=== PATIENT | male | born 1965 | race Caucasian/White ===

== ENCOUNTER 2020-05-09 17:25 | Emergency (ER) | payer OTHER, SELFPAY ==
--- NOTE | 2020-05-09 17:38 | ED.SKABFB ---
HPI - Skin/Abscess/Foreign Bdy General Chief complaint: Skin/Abscess/Foreign Body Stated complaint: knee blister Time Seen by Provider: 05/09/20 17:44 Source: patient and RN notes reviewed Mode of arrival: ambulatory Limitations: no limitations History of Present Illness HPI narrative: 55-year-old male who presents to express care with complaints of redness, warmth and swelling to tissues of anterior left knee for the past 2 day with some purulent drainage. Patient states that he was crawling under the house about a month ago and wonders if that is what has caused this. Patient states that he has been squeezing on lesion on left knee and it has been draining purulent drainage. Patient has scabbed area to his right knee with no redness, drainage or irritation. Patient denies any fevers, chills, or sweats. MD complaint: abscess/boil Onset (ago): day(s) (2) Tetanus up to date: yes Location: LLE (anterior knee) Severity: mild Severity scale (1-10): 3 Quality: aching and pruritic Pain Consistency: constant Relieving factors: cold therapy Exacerbating factors: palpation and movement Context: other (was working in crawl space at home one month ago) Associated symptoms: itching and other (discomfort) Treatments prior to arrival: attempted to drain pus at home and OTC topical medication Related Data Allergies Allergy/AdvReac Type Severity Reaction Status Date / Time No Known Allergies Allergy Verified 05/09/20 17:43 Review of Systems Review of Systems: Narrative: CONSTITUTIONAL: Denies fever, chills, or sweats. EYES: Denies visual changes, redness, or discharge. ENT: Denies rhinorrhea, congestion, sore throat, or otalgia. CARDIOVASCULAR: Denies chest pain, palpitations, or edema. RESPIRATORY: Denies cough or dyspnea. GASTROINTESTINAL: Denies abdominal pain, nausea, vomiting, or diarrhea. GENITOURINARY: Denies dysuria or hematuria. SKIN: positive for red, warm, tender skin anterior left knee with small center pustule, patient also states some pruritus to skin area MUSCULOSKELETAL: Denies back pain, joint pain, or myalgia. NEUROLOGIC: Denies headache, numbness, or weakness. PSYCHIATRIC: Denies anxiety or depression. All systems reviewed & are unremarkable except as noted in HPI and below PMFSH Past Medical History Medical History (Updated 05/09/20 @ 18:22 by Flora Lama NP) Essential hypertension Surgical History Surgical History (Updated 05/09/20 @ 18:22 by Flora Lama NP) History of tonsillectomy Family History Family History (Updated 07/27/19 @ 07:21 by Jeri Ricardo CMA) Sibling Murmur Father CAD (coronary artery disease) Neuropathy Diabetes mellitus Mother COPD (chronic obstructive pulmonary disease) Diabetes mellitus Sibling Heart disease Diabetes mellitus Social History Social History (Updated 05/09/20 @ 18:23 by Flora Lama NP) Smokeless tobacco user: chewing tobacco Alcohol intake: current Substance use: never Living arrangements: with family Occupation/Education: occupation 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 HEAD: Normocephalic, atraumatic. EYES: PERRLA and EOMI. ENT: Nares clear, no rhinorrhea or epistaxis. Mucous membranes moist. NECK: Supple.no lymphadenopathy CHEST: Clear to auscultation. No respiratory distress.SAO2 98% on room air HEART: Regular rate and rhythm. No murmur heard. Normal peripheral pulses. ABDOMEN: Soft, nontender, nondistended, normal active bowel sounds. EXTREMITIES: Normal range of motion. No edema.Pain to anterior aspect of left knee, full ROM noted with no tingling or numbness to left leg or foot, mild warmth to tissue of anterior aspect of left knee SKIN: Warm, dry, 4cmX 3cm area of redness with warmth to anterior aspect of left knee with center white pustular area
[2020-05-09 17:40] VITALS: BP 153/84; PULSE 102; RESP 20; TEMP 37.4; O2SAT 98
== END 2020-05-09 18:09 | disposition home or self-care (01) ==
PROVIDERS: Emergency Provider Registered Nurse; PCP Internal Medicine
DX: L02.416 Cutaneous abscess of left lower limb (principal); M25.562 Pain in left knee; F17.220 Nicotine dependence, chewing tobacco, uncomplicated; I10 Essential (primary) hypertension
CPT/HCPCS: 99213; G0463

== ENCOUNTER 2021-03-21 08:14 | Outpatient (CLI) | payer OTHER, SELFPAY ==
[2021-03-21 09:11] LABS: Basophils Absolute Auto 0.1 K/mm3 (0.0-0.1); Basophils Percent Auto 1.1 % (0.2-1.2); Eosinophils Absolute Auto 0.4 K/mm3 (0-0.3); Eosinophils Percent Auto 6.6 % (0-4.4); Hematocrit 44.9 % (42.0-52.0); Hemoglobin 14.8 g/dL (14.0-18.0); Immature Granulocyte Absolute 0.03 K/mm3 (0.00-0.031); Immature Granulocyte Percent A 0.6 % (0-0.5); Lymphocytes Absolute Auto 2.14 K/mm3 (0.9-3.2); Lymphocytes Percent Auto 39.3 % (18.3-44.2); Mean Corpuscular Volume 93.9 fl (80-100); Mean Platelet Volume 9.7 fl (7.4-10.4); Monocytes Percent Auto 18.9 % (2.6-8.5); Neutrophils Absolute Auto 1.8 K/mm3 (1.3-6.7); Neutrophils Percent Auto 33.5 % (45.5-73.1); Platelet Count Result 237 k/mm3 (150-375); Red Blood Count 4.78 M/mm3 (4.6-6.20); Red Cell Distribution Width 12.7 % (11.5-14.5); White Blood Count 5.4 K/mm3 (4.5-10.0)
[2021-03-21 09:29] LABS: Alanine Aminotransferase 34 U/L (4-50); Albumin Level 4.3 g/dL (3.5-5.1); Alkaline Phosphatase 56 U/L (38-126); Anion Gap 9 mmol/L (8-16); Aspartate Amino Transferase 34 U/L (17-59); Bilirubin,Total 0.7 mg/dL (0.2-1.3); Blood Urea Nitrogen 20 mg/dL (9-20); Calcium 9.7 mg/dL (8.4-10.2); Carbon Dioxide 24 mmol/L (22-30); Chloride 103 mmol/L (98-107); Cholesterol 198 mg/dL (0-200); Estimated Glomerular Filt Rate > 60; Glucose 98 mg/dL (65-110); HDL Direct 39 mg/dL; Potassium 4.6 mmol/L (3.4-5.0); Sodium 136 mmol/L (137-145); Triglycerides 146 mg/dL (<150)
[2021-03-21 09:40] LABS: LDL Cholesterol Direct 111 mg/dL
[2021-03-21 09:57] LABS: Prostate Specific Antigen 0.5 ng/mL (< OR = 4.0)
== END 2021-03-21 08:15 | disposition home or self-care (01) ==
PROVIDERS: PCP Internal Medicine; Visit Provider Nurse Practitioner
DX: I10 Essential (primary) hypertension (principal); Z12.5 Encounter for screening for malignant neoplasm of prostate
CPT/HCPCS: 36415; 80053; 80061; 84153; 85025; G0103

== ENCOUNTER 2021-09-14 12:37 | Emergency (ER) | payer OTHER, SELFPAY ==
[2021-09-14 12:47] VITALS: BP 150/80; PULSE 86; RESP 20; TEMP 36.9; O2SAT 98
--- NOTE | 2021-09-14 13:03 | ED.GENADULT ---
HPI - General Adult General Chief complaint: Ear Stated complaint: Lt Ear Irritation Time Seen by Provider: 09/14/21 12:53 Source: patient and RN notes reviewed Mode of arrival: ambulatory Limitations: no limitations History of Present Illness HPI narrative: Patient presents today complaining of intermittent left ear pain and pressure that radiates to his left upper jaw x1 week. He is currently pain-free. He has been applying peroxide to the ear canal without relief. He has also been pinching and blowing to equalize his ear, which does help at times. Denies decreased hearing or drainage from the ear. MD complaint: Left ear pain Related Data Allergies Allergy/AdvReac Type Severity Reaction Status Date / Time No Known Allergies Allergy Verified 09/14/21 12:50 Review of Systems Review of Systems: CONSTITUTIONAL: Denies body aches, fever, chills, or sweats. EYES: Denies visual changes, redness, or discharge. ENT: Denies rhinorrhea, congestion, sore throat. + Left ear pain CARDIOVASCULAR: Denies chest pain, palpitations, or edema. RESPIRATORY: Denies cough or dyspnea. GASTROINTESTINAL: Denies abdominal pain, nausea, vomiting, or diarrhea. GENITOURINARY: Denies dysuria or hematuria. SKIN: Denies rash, itching, or wounds. MUSCULOSKELETAL: Denies back pain, joint pain, or myalgia. NEUROLOGIC: Denies headache, numbness, tingling, or weakness. PSYCH: Denies depression or anxiety. 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 Please see nursing chart for further information. There is no relevant family history pertinent to the presenting complaint Exam Narrative: GENERAL: Well-appearing, well-nourished, and in no acute distress. HEAD: Normocephalic, atraumatic. EYES: EOMI. No redness or drainage. Conjunctivae normal. ENT: Mucous membranes pink and moist. Nares clear. No rhinorrhea. Left ear with mild middle ear effusion without evidence of infection. Right ear normal. Left upper gumline faintly erythematous around where tooth 13 used to be, but without edema or obvious periapical abscess. NECK: Normal AROM. CHEST: No respiratory distress. EXTREMITIES: Normal range of motion. No edema. SKIN: Warm, dry, no rash. Capillary refill normal. Normal skin turgor. NEURO: No focal deficits. Alert and oriented x3. Gait steady. PSYCH: Normal affect. No signs of depression or anxiety. Course Course Emergency Course: Discussed with patient that he has mild middle ear effusion and ways to treat this with Coricidin and Flonase. Patient then states he believes his source of pain is in his jaw and possible tooth area. This was not what he originally described. Patient states that now he knows he does not have an ear infection, that may be he has a dental infection where he previously had a tooth removed many years ago. It is difficult to examine, but tooth #13 was removed, but there is a slight erythema around the socket. No periapical abscess noted. Some dental decay not
== END 2021-09-14 13:15 | disposition home or self-care (01) ==
PROVIDERS: Emergency Provider Nurse Practitioner; PCP Internal Medicine
DX: K08.89 Other specified disorders of teeth and supporting structures (principal); H65.02 Acute serous otitis media, left ear; I10 Essential (primary) hypertension
CPT/HCPCS: 99213; G0463

== ENCOUNTER 2021-12-15 14:12 | Observation (INO) | payer OTHER, SELFPAY ==
[2021-12-15] VITALS (39 sets, daily range): BP systolic 109–158; BP diastolic 67–116; PULSE 59–82; RESP 7–26; TEMP 36.3–36.8; O2SAT 96–100; BMI 28.8
--- NOTE | ~2021-12-15 | US_ITS ---
EXAMINATION: US carotid duplex BI DATE: 12/16/2021 11:00 INDICATION: Stroke TECHNIQUE: Grayscale, color Doppler, and pulsed Doppler images of the cervical carotid arteries were obtained. The degree of vessel stenosis is placed in one of the following categories: normal, <50%, 5 0-69%, >=70% but less than near-occlusion, near-occlusion, or total occlusion. Note that percent sten osis relative to normal distal artery lumen diameter is indirectly measured from velocity measurement s as described by Bert, et al. Radiology 2003; 229:340-346. COMPARISON: Carotid CT angiogram dated 12/15/2021 FINDINGS: RIGHT: The right common carotid artery (CCA) peak systolic velocity (PSV) is 79 cm/s. The right internal car otid artery (ICA) PSV is 56 cm/s. The right ICA end-diastolic velocity (EDV) is 12 cm/s. The right IC A/CCA PSV ratio is 0.7. Grayscale and color Doppler images yield an estimate of <50% diameter reducti on from minimal plaque in the ICA. The external carotid artery (ECA) PSV is 99 cm/s. There is antegra de flow in the right vertebral artery. LEFT: The left CCA PSV is 77 cm/s. The left ICA PSV is 58 cm/s. The left ICA EDV is 21 cm/s. The left ICA/C CA PSV ratio is 0.7. Grayscale and color Doppler images yield an estimate of <50% diameter reduction from minimal plaque in the ICA. The ECA PSV is 61 cm/s. There is antegrade flow in the left vertebral artery. IMPRESSION: 1. <50% stenosis from minimal plaque in the right internal carotid artery. 2. <50% stenosis from minimal plaque in the left internal carotid artery. Reviewed, dictated and finalized at location A.
--- NOTE | ~2021-12-15 | CT_ITS ---
EXAMINATION: CT brain wo con DATE: 12/15/2021 14:22 INDICATION: Stroke with presenting with aphasia and confusion TECHNIQUE: Computed tomography (CT) of the head was performed without intravenous contrast. Sagittal and coronal reconstructions were performed. The mA was adjusted according to patient size. Iterative reconstruction technique was employed. The dose-length product was 1210.67 mGy-cm. COMPARISON: None FINDINGS: Evaluation mildly limited by motion artifact on both the initial imaging and repeated imaging. No acu te intracranial hemorrhage, acute infarction or abnormal extra axial fluid collection. Ventricles are normal and symmetric. No mass/mass effect. The orbits, paranasal sinuses and mastoid air cells are n ormal. IMPRESSION: 1. Normal head CT aside from motion artifact on both initial and repeat imaging which mildly limits e valuation. Reviewed, dictated and finalized at location A. IMPRESSION: 1. Normal head CT aside from motion artifact on both initial and repeat imaging which mildly limits evaluation.
--- NOTE | ~2021-12-15 | MR_ITS ---
EXAMINATION: MR brain/brain stem wo/w con DATE: 12/16/2021 10:30 INDICATION: Cerebral vascular accident. Dysphasia. TECHNIQUE: Magnetic resonance imaging (MRI) of the brain and brainstem was performed without and with 20 mL MultiHance intravenous contrast. COMPARISON: Head CT 12/15/2021 FINDINGS: There is no intracranial hemorrhage, acute infarction, or abnormal intracranial mass lesion . The ventricles are normal in size. The paranasal sinuses are clear. The mastoid air cells are ingrid l. The orbits are normal. IMPRESSION: 1. Normal brain. Reviewed, dictated and finalized at location B. IMPRESSION: 1. Normal brain.
--- NOTE | ~2021-12-15 | CT_ITS ---
EXAMINATION: CTA brain carotid DATE: 12/15/2021 15:00 INDICATION: Dysphasia. TECHNIQUE: Computed tomographic angiography (CTA) of the head was performed with 100 mL Omnipaque-350 intravenous contrast. CTA of the neck was performed with intravenous contrast. Automated exposure co ntrol and iterative reconstruction technique were employed. The dose-length product was 1146.55 mGy-c m. Maximum intensity projection and volume rendered 3D-reconstructions were created by the [employer]OO[facility]IM[facility] st on a separate workstation. COMPARISON: Head CT 12/15/2021 FINDINGS: HEAD CTA: There is no intracranial hemorrhage, acute infarction, or abnormal intracranial mass lesion . The ventricles are normal in size. The orbits are normal. The mastoid air cells are normal. There i s mild mucosal thickening in the paranasal sinuses. Left vertebral artery is dominant. There is no si gnificant stenosis of basilar artery or the posterior cerebral arteries. The posterior communicating arteries are normal. There is no significant stenosis of the intracranial internal carotid arteries o r anterior or middle cerebral arteries. Anterior communicating artery is normal. There is no aneurysm . NECK CTA: There are no pathologically enlarged lymph nodes. There is extensive dental disease. There is no significant stenosis of the vertebral arteries. There is mild plaque in the proximal internal c arotid arteries. There is 0% stenosis of the proximal right internal carotid artery relative to ingrid l distal artery lumen diameter (NASCET criteria). There is 0% stenosis of the proximal left internal carotid artery relative to normal distal artery lumen diameter. There is moderate cervical spondylosi s. IMPRESSION: 1. Normal brain. No aneurysm or significant intracranial arterial stenosis. 2. 0% stenosis of the proximal internal carotid arteries relative to normal distal artery lumen diame ters (NASCET criteria). 3. Extensive dental disease. Reviewed, dictated and finalized at location B. IMPRESSION: 1. Normal brain. No aneurysm or significant intracranial arterial stenosis. 2. 0% stenosis of the proximal internal carotid arteries relative to normal dis anh artery lumen diameters (NASCET criteria). 3. Extensive dental disease.
--- NOTE | 2021-12-15 14:29 | ED.NEUROSD ---
HPI - Neuro Symptoms/Deficit General Chief Complaint: Suspected CVA Stated Complaint: CVA s/sx Source: patient and family Mode of arrival: ambulatory Limitations: no limitations History of Present Illness HPI Narrative: 56-year-old male presented to the emergency department for evaluation of speech difficulty that has been ongoing for the past 2 days. Family states the patient was last seen normal on Wednesday night. They report the patient did sleep the majority of the day on Wednesday and when family went to wake him up he would awake but would not speak. They state today when he woke up he was confused and was having speech difficulties. Family states that this morning he went into the living room and had a bowel movement on the floor. They report the patient has been more agitated here. Patient does have history of high blood pressure. Patient is unsure of his cholesterol. Patient is not diabetic. Related Data Allergies Allergy/AdvReac Type Severity Reaction Status Date / Time No Known Allergies Allergy Verified 12/15/21 21:51 Review of Systems Review of Systems: Patient denies any complaints but review of systems is difficult due to his current mental status ROS unobtainable: Yes unobtainable due to mental status [facility] Past Medical History Medical History Essential hypertension Surgical History Surgical History History of tonsillectomy Family History Family History Sibling Murmur Father CAD (coronary artery disease) Neuropathy Diabetes mellitus Mother COPD (chronic obstructive pulmonary disease) Diabetes mellitus Sibling Heart disease Diabetes mellitus Social History Social History (Updated 12/15/21 @ 20:33 by Shaila Barrera NP) Social History: 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 The patient works for the [employer]. He has had asbestos exposure. The patient has 1 child. The patient uses smokeless tobacco. Patient occasionally drinks a glass of wine. He denies any substance abuse. Code status full code Smokeless tobacco user: chewing tobacco Second hand tobacco smoke exposure: No Alcohol intake: never Alcohol use details: socially Substance use: never Additional occupation/education comments: [employer] Gender identity (if verbalized by the patient): Male Spiritual care concerns: No Exam Narrative: APPEARANCE: Well appearing, no pain, no distress, well-nourished. HEAD: normocephalic, atraumatic. EYES: PERRLA/EOMI, conjunctivae clear. NOSE: Normal no drainage EARS:TMS clear with good light reflex. THROAT: Pharynx clear, no exudate. NECK: Supple. No adenopathy, no masses. RESPIRATORY: Airway patent, respirations nonlabored. Clear to auscultation bilaterally, no rales, rhonchi, wheezing. CARDIOVASCULAR: Regular rate and rhythm without murmurs rubs or gallops. ABDOMINAL: Soft, nontender, nondistended, normal bowel sounds MUSCULOSKELETAL: Moves all extremities. Strength/ROM intact, No edema, No calf tenderness. NEURO: Alert. Cranial nerves II through XII intact. Patient is having difficulty cooperating with the exam. Patient is having word finding difficulty. Was unable to name the president, was unable to identify a pen or a watch. No focal weakness or discoordination but exam is limited due to patient cooperation. SKIN: Warm, dry. Normal Color Course Course Emergency Course: I discussed the case with neurology. Due to the patient being out of the window for any invasive treatment patient will be admitted for MRI and further evaluation. Patient and family were updated on the plan. Patient was treated with aspirin and Plavix. Case was discussed with the hospitalist and patient will be admitted to [facility] telemetry. Vital Signs Vital signs: Vital Signs Temperatur
[2021-12-15 14:39] LABS: Basophils Absolute Auto 0.1 K/mm3 (0.0-0.1); Basophils Percent Auto 0.7 % (0.2-1.2); Eosinophils Absolute Auto 0.2 K/mm3 (0-0.3); Eosinophils Percent Auto 1.7 % (0-4.4); Hematocrit 46.8 % (42.0-52.0); Hemoglobin 15.5 g/dL (14.0-18.0); Immature Granulocyte Absolute 0.03 K/mm3 (0.00-0.031); Immature Granulocyte Percent A 0.3 % (0-0.5); Lymphocytes Absolute Auto 2.29 K/mm3 (0.9-3.2); Lymphocytes Percent Auto 26.4 % (18.3-44.2); Mean Corpuscular HGB Conc 33.1 g/dl (32-36); Mean Corpuscular Hemoglobin 31.6 pg (26-34); Mean Corpuscular Volume 95.5 fl (80-100); Mean Platelet Volume 9.8 fl (7.4-10.4); Monocytes Absolute Auto 1.6 K/mm3 (0.1-0.6); Monocytes Percent Auto 18.4 % (2.6-8.5); Neutrophils Absolute Auto 4.6 K/mm3 (1.3-6.7); Neutrophils Percent Auto 52.5 % (45.5-73.1); Platelet Count Result 244 k/mm3 (150-375); Red Cell Distribution Width 12.8 % (11.5-14.5); White Blood Count 8.7 K/mm3 (4.5-10.0)
[2021-12-15 14:49] LABS: Prothrombin Time 13.1 Seconds (11.1-14.7)
[2021-12-15 14:50] LABS: Alanine Aminotransferase 32 U/L (6-50); Albumin Level 4.8 g/dL (3.5-5.1); Alkaline Phosphatase 60 U/L (38-126); Anion Gap 7 mmol/L (8-16); Aspartate Amino Transferase 31 U/L (17-59); Bilirubin,Total 0.7 mg/dL (0.2-1.3); Blood Urea Nitrogen 20 mg/dL (9-20); Calcium 9.3 mg/dL (8.4-10.2); Carbon Dioxide 27 mmol/L (22-30); Chloride 102 mmol/L (98-107); Estimated CRCL calculation 65 ml/min; Estimated Glomerular Filt Rate > 60; Glucose 111 mg/dL (65-110); Partial Thromboplastin Time 30.3 SECONDS (22.3-36.8); Potassium 4.2 mmol/L (3.4-5.0); Sodium 136 mmol/L (137-145)
[2021-12-15 16:19] LABS: Appearance Urine Clear (Clear); Bilirubin Urine Negative (Negative); Blood Urine Negative (Negative); Color Urine Yellow (Yellow); Glucose Urine UA Negative (Negative); Ketones Urine Negative (Negative); Leukocyte Esterase Ur Negative LEU/UL (Negative); Nitrate Urine Negative (Negative); Protein Urine Negative (Negative); Specific Grav Ur 1.015 (1.001-1.035); Urobilinogen Urine 0.2 mg/dL (<2.0); pH Urine 5.5 (5.0-9.0)
[2021-12-15 16:38] LABS: Add Urine Microscopic? NO
--- NOTE | 2021-12-15 17:16 | PM.IMHP ---
H&P: HPI History of Present Illness Date/Time: 12/15/21 17:16 this is a 56-year-old male patient who presented to the emergency room with difficulty speaking. This is been going on for 2 days. Family stated that his last normal was Wednesday night. The patient slept the majority of the day on Wednesday and family went to wake him he was not able to speak. Patient was confused and having speech difficulty again today. The family stated that the patient went into the liver ER and had a bowel movement in the middle of the living room. Head and neck CTA was read as normal brain. No aneurysm or significant intracranial arterial stenosis. 0% stenosis of the proximal internal carotid arteries relative to normal distal artery lumen diameters. Extensive dental disease. Head CT normal head CT is from motion artifact on both internal on repeated imaging which mildly limits evaluation. The patient continues to have expressive aphasia. The patient is able to tell me his name and who the president is but he could not give me the date or the time. The patient was given IV fluids, Plavix and aspirin. The patient is being admitted to observation status on the date of service of 12/15/2021. Chief Complaint: Confusion Review of Systems Review of Systems: All systems reviewed & are unremarkable except as noted in HPI and below Constitutional: Constitutional: Reports as per HPI and Reports no additional constitutional complaints Eyes: Eyes: Reports as per HPI and Reports no additional eye complaints ENT: Reports system reviewed and no additional complaints, except as documented and Reports Normal hearing present Cardiovascular: Cardiovascular: Reports no additional cardiovascular complaints Respiratory: Respiratory: Reports no additional respiratory complaints and Reports no additional respiratory complaints Gastrointestinal: Gastrointestinal: Reports as per HPI and Reports no additional gastrointestinal complaints Musculoskeletal: Musculoskeletal: Reports no additional musculoskeletal complaints Integumentary/Breasts: Skin/Breast: Reports system reviewed and no additional complaints, except as docu and Reports as per HPI Neurologic: Reports system reviewed and no additional complaints, except as documented, Reports as per HPI and Reports Normal hearing present Psychiatric: Psychiatric: Reports no additional psychiatric complaints and Reports as per HPI Endocrine: Endocrine: Reports no additional endocrine complaints Hematologic/Lymphatic: Hematologic/Lymphatic: Reports no additional hematologic/lymphatic complaints Allergic/Immunologic: Allergic/Immunologic: Reports no additional allergic/immunologic complaints [facility] Past Medical History Medical History Essential hypertension Surgical History Surgical History History of tonsillectomy Family History Family History Sibling Murmur Father CAD (coronary artery disease) Neuropathy Diabetes mellitus Mother COPD (chronic obstructive pulmonary disease) Diabetes mellitus Sibling Heart disease Diabetes mellitus Social History Social History (Updated 12/15/21 @ 20:33 by Shaila Barrera NP) Social History: 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 He has had asbestos exposure. The patient has 1 child. The patient uses smokeless tobacco. Patient occasionally drinks a glass of wine. He denies any substance abuse. Code status full code Smokeless tobacco user: chewing tobacco Alcohol intake: current Alcohol use details: socially Substance use: never Additional occupation/education comments: [employer] Gender identity (if verbalized by the patient): Male Meds Home Medications and Allergies Home Medications Medication Instr
[2021-12-15] MEDS: SODIUM CHLORIDE 0.9% IV 1,000 ML 125 ML IV CONT ×2 (18:19→23:57)
--- NOTE | 2021-12-15 18:24 | PC.NURSE ---
Report received, awaiting room to be ready. Called [facility] to verify medication, no answer.
[2021-12-15 21:18] LABS: Glucose Point of Care 108 mg/dl (65-105)
--- NOTE | 2021-12-15 21:57 | ADMGEN ---
This patient, Teodoro Tran, was admitted to [facility] Surg Room 304-01. Patient/family oriented to hospital policies and general routines including ID bracelet, bed and alarms, visiting hours, pain management, procedures, bathroom and other care routines, personal items, smoking policy, room service/diet, and visiting hours. Information on how to activate the Rapid Response Team has been discussed. Patient/Family are encouraged to report perceived risks to care and to ask questions if they do not understand what they are told or what they should do.
[2021-12-16] VITALS (11 sets, daily range): BP systolic 125–152; BP diastolic 72–85; PULSE 50–74; RESP 18–24; TEMP 36.3–37.2; O2SAT 95–98
--- NOTE | 2021-12-16 | ECHO_ITS ---
Patient Info Name: Teodoro Tran Age: 56 years : 1965 Gender: Male Ht: 66 in Wt: 178 lbs BSA: 1.96 m2 HR: 70 bpm BP: 137 / 83 mmHg Heart Rhythm: Sinus Rhythm Technical Quality: Fair Exam Date: 12/16/2021 1:06 PM Exam Location: [facility] Patient Status: Inpatient Admit Date: 12/15/2021 Staff Ordering Physician: Shaila Barrera NP Museum Host/Hostess: Cassie Parry RDCS Attending Provider: Elicia Peres DO Referring Physician: Holly GONZALEZ; Exam Type: CA echo dop bubble study w con Study Info Indications - cva Complete two-dimentional, color flow and Doppler transthoracic echocardiogram is performed with agitated saline and with contrast to opacify the left ventricle and to improve the delineation of the left ventricle endocardial borders. Contrast/Agitated Saline Contrast/Ag. Saline: Definity Amount: 2.00 ml Administered By: Cassie Parry RDCS Existing IV Access: Yes IV Access Condition: patent with no signs of infiltration Contrast/Ag. Saline: Agitated Saline Amount: 30.00 ml Administered By: Isela Moreno RDCS Existing IV Access: Yes IV Access Condition: patent with no signs of infiltration Summary 1. Left ventricular chamber dimension is normal. 2. Left ventricular systolic function is normal, estimated at 65-70%. 3. The left ventricular diastolic function is grade I diastolic dysfunction. 4. Right ventricular systolic function is reduced based on abnormal TAPSE 1.2 cm. 5. There is mild aortic valve sclerosis. 6. The mitral valve has mildly calcified annulus. 7. No pulmonary hypertension, estimated pulmonary arterial systolic pressure is 19 mmHg. 8. There is trace pulmonic regurgitation. Left Ventricle Tissue doppler is not performed. Left ventricular chamber dimension is normal. Left ventricular systolic function is normal, estimated at 65-70%. The left ventricular diastolic function is grade I diastolic dysfunction. Right Ventricle Right ventricular systolic function is reduced based on abnormal TAPSE 1.2 cm. Right ventricular chamber dimension is normal. Left Atria Left atrial chamber dimension is normal. Right Atria Right atrial chamber dimension is normal. Atrial Septum Agitated saline injection with and without valsalva maneuver opacified right side cardiac chambers without shunt to left side cardiac chambers. Intact interatrial septum visualized by 2D and agitated saline imaging. Aortic Valve The aortic valve is trileaflet. There is mild aortic valve sclerosis. There is no aortic valve stenosis. There is no aortic valve regurgitation. Pulmonic Valve There is trace pulmonic regurgitation. Mitral Valve The mitral valve has mildly calcified annulus. There is no mitral valve stenosis. There is no mitral valve regurgitation. Tricuspid Valve There is no tricuspid valve regurgitation. No pulmonary hypertension, estimated pulmonary arterial systolic pressure is 19 mmHg. Pericardium/Pleural There is no pericardial effusion. Inferior Vena Cava Normal inferior vena cava with >50% collapse upon inspiration consistent with normal right atrial pressure, 5 mmHg. Aorta The aortic root size at the sinus of Valsalva is normal. Left Ventricular Outflow Tract Name Value Normal
[2021-12-16 01:51] LABS: Glucose Point of Care 97 mg/dl (65-105)
[2021-12-16 05:43] LABS: Glucose Point of Care 96 mg/dl (65-105)
[2021-12-16] MEDS: ASPIRIN 81 MG CHEWABLE TABLET PO (08:28)
[2021-12-16] MEDS: CLOPIDOGREL BISULFATE 75 MG TABLET PO (08:28)
[2021-12-16 08:49] LABS: Glucose Point of Care 115 mg/dl (65-105)
--- NOTE | 2021-12-16 10:04 | PC.NURSE ---
to MRI per wheelchair
[2021-12-16] MEDS: NICOTINE (*PBKC) 21 MG PATCH 1 PATCH TRANSDERM (11:01)
--- NOTE | 2021-12-16 11:45 | PCPTNOTE ---
Attempted physical therapy, patient getting EKG. Will Follow
[2021-12-16] MEDS: SODIUM CHLORIDE 0.9% IV 1,000 ML 125 ML IV CONT (13:36)
--- NOTE | 2021-12-16 13:36 | PCPTNOTE ---
Attempted physical therapy evaluation, patient getting an echo. Will follow.
--- NOTE | 2021-12-16 13:39 | PM.IMPN ---
Progress Note: A&P Assessment and Plan (1) Acute CVA (cerebrovascular accident): Code(s): I63.9 - Cerebral infarction, unspecified Status: Acute Assessment and Plan: PT OT and speech evaluation of greatly be appreciated. ED provider did notify Neurology. The neurologist suggested Plavix and aspirin. Patient will also need a swallow study. An MRI and echo and carotid Dopplers will be ordered. Continue with [employer]. 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 (2) Dysphasia: Code(s): R47.02 - Dysphasia Status: Acute Assessment and Plan: Speech therapy. (3) Essential hypertension: Code(s): I10 - Essential (primary) hypertension Status: Chronic Assessment and Plan: P.r.n. hydralazine. Subjective Date/time seen: 12/16/21 13:39 HPI-this is a 56-year-old male patient who presented to the emergency room with difficulty speaking. This is been going on for 2 days. Family stated that his last normal was Wednesday night. The patient slept the majority of the day on Wednesday and family went to wake him he was not able to speak. Patient was confused and having speech difficulty again today. The family stated that the patient went into the liver ER and had a bowel movement in the middle of the living room. Head and neck CTA was read as normal brain. No aneurysm or significant intracranial arterial stenosis. 0% stenosis of the proximal internal carotid arteries relative to normal distal artery lumen diameters. Extensive dental disease. Head CT normal head CT is from motion artifact on both internal on repeated imaging which mildly limits evaluation. The patient continues to have expressive aphasia. The patient is able to tell me his name and who the president is but he could not give me the date or the time. The patient was given IV fluids, Plavix and aspirin. The patient is being admitted to observation status on the date of service of 12/15/2021. 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 Review of Systems Review of Systems: All systems reviewed & are unremarkable except as noted in HPI and below Exam Narrative: Patient is comfortable, NAD HEENT: eyes are clear and none icteric LUNGS: normal respiratory effort ABD: distended Lower extremities: no edema SKIN: nonjaundiced Neuro: grossly intact. Objective Data Vital Signs Vital Signs: Vital Signs - 24 hr 12/15/21 14:27 12/15/21 14:28 12/15/21 14:29 Temperature 97.6 F Pulse Rate 78 79 78 Respiratory Rate 16 14 19 Blood Press
[2021-12-16] MEDS: PERFLUTREN LIPID MICROSPHERES 1.5 ML VIAL DILUTED TO 10 ML TOTAL VOLUME IV PUSH (14:09)
--- NOTE | 2021-12-16 14:09 | IVDEFINITY ---
Prior to administration of IV Definity the patient was educated on the risks and benefits of the imaging enhancing agent including potential adverse side effects. The patient verbalized understanding. Allergies were verified. No exclusion criteria were identified and at least one of the following inclusion criteria were met: 1) physician request, 2) patient technically difficult to image (per the [place] [employer] guidelines of two or more segments not discernable within the apical view), or 3) questionable left ventricular function. ?
[2021-12-16] MEDS: ACETAMINOPHEN 325 MG TABLET 650 MG PO (21:56)
[2021-12-17] VITALS: PULSE 79
[2021-12-17 04:00] VITALS: PULSE 62
[2021-12-17 06:00] VITALS: BP 100/71; PULSE 56; RESP 18; TEMP 36.3; O2SAT 100
[2021-12-17 08:00] VITALS: PULSE 71
[2021-12-17] MEDS: ASPIRIN 81 MG CHEWABLE TABLET PO (08:27)
[2021-12-17] MEDS: NICOTINE (*PBKC) 21 MG PATCH 1 PATCH TRANSDERM (08:27)
[2021-12-17] MEDS: CLOPIDOGREL BISULFATE 75 MG TABLET PO (08:27)
[2021-12-17] MEDS: lisinopriL 20 MG TABLET PO (08:27)
--- NOTE | 2021-12-17 11:29 | PM.DS ---
DS: Admitting Diagnosis Discharge Date December 17, 2021 Admitting Diagnosis Possible CVA DS: Discharge Diagnosis Discharge Diagnosis (1) Acute CVA (cerebrovascular accident): Code(s): I63.9 - Cerebral infarction, unspecified Status: Acute Assessment and Plan: Workup unrevealing. Aspirin on discharge (2) Dysphasia: Code(s): R47.02 - Dysphasia Status: Acute Assessment and Plan: Speech therapy. (3) Essential hypertension: Code(s): I10 - Essential (primary) hypertension Status: Chronic Assessment and Plan: Monitor on discharge DS: Summary Hospital Course Hospital Course: see plan of discharge diagnoses Time Spent with Patient Time attestation: Total time spent providing and/or coordinating discharge services: Greater than 30 min Exam Narrative: Patient is comfortable, NAD HEENT: eyes are clear and none icteric LUNGS: normal respiratory effort ABD: distended Lower extremities: no edema SKIN: nonjaundiced Neuro: grossly intact. Const: General: cooperative, healthy appearing, comfortable, no acute distress, well developed, alert, awake and Physically active Nutritional Appearance: average body habitus and well nourished Orientation/consciousness: oriented to person and oriented to place Limitations: altered mental status Other: Expressive aphasia HENMT: Head: normal to inspection, No palpable skull fracture present, normocephalic and atraumatic Ears: hearing grossly normal bilaterally and external ears normal General nose exam: Normal external nose present Eyes: General: appearance normal, both eyes and all related structures Alignment and Position: alignment normal Periorbital: periorbital findings normal Eyelids: eyelids normal Conjunctivae: conjunctivae normal Sclera: sclerae normal Cornea: corneas normal Pupils: Equal, round and reactive pupils present EOM: EOMs intact bilaterally Neck: Neck: normal visual inspection and full ROM Chest: Chest palpation & inspection: normal inspection of the chest Resp: Effort & Inspection: normal respiratory effort Auscultation: clear to auscultation bilaterally Percussion: percussion normal Cardio: Palpation: normal PMI Rate: regular rate Rhythm: regular rhythm Heart sounds: S1 normal heart sound present and S2 normal heart sound present Peripheral pulses: Peripheral pulses 2+ throughout GI: Inspection: normal to inspection Auscultation: normal bowel sounds Rectal Exam: deferred Skin: General skin exam: normal color Lesions: no lesions Rashes: no rashes Trauma: no lacerations or abrasions Wounds: no wounds Hair: normal Nails: normal Neuro: General: oriented to person and oriented to place Cranial nerves: Yes Equal, round and reactive pupils present and Yes Normal hearing present Motor exam (neuro): 5/5 motor strength present throughout Sensory Exam: normal sensation Extrem: General: normal to inspection Right upper extremity: normal to inspection Left upper extremity: normal to inspection Right lower extremity: normal to inspection Left lower extremity: normal to inspection Psych: Appearance: grossly normal Speech and movement: Other speech and movement exam findings present (Psych) (Expressive aphasia) Affect: normal affect Attitude: cooperative Thought process: Impoverished thought process present Insight: Fair insight present (Psych) Judgement: Fair judgement present (Psych) Discharge Plan Discharge Attending physician on discharge: Stalin Pastrana Consulting providers: Saurav Gonzalez Discharging Clinician: Stalin Pastrana Patient Disposition: Home, Self-Care Activity: no preference Diet: as tolerated Patient Instructions: How to Stop Smoking (DC), Pain Management (DC), Stroke (DC), Antibiotic Form Stand Alone Forms: General Discharge Information Follow-up/Referrals: Saurav Gonzalez MD [Physician] - Discharge Medications: New aspirin [Children's Aspirin]
--- NOTE | 2021-12-17 23:10 | P.NEURO_ITS ---
Neurology EEG Report General Information Date of Study: 12/16/21 TEST EEG DIAGNOSIS Difficulty in speaking Possible stroke CONDITION OF RECORDING Awake and drowzy CLINICAL HISTORY Difficulty in speaking EEG DESCRIPTION Wakefuless and drowsiness were obtained. During wakefulness, there was a posterior background of low to moderate voltage, 7-8 Htz activity. During drowsiness, there was a physiologic slowing at 5-6 Htz activity. with vertex sharp waves. Photic stimulation and hyperventilation were not performed. IMPRESSION this EEG is abnormal due the presence of mild diffuse background slowing. This EEG is indicative of the presence of mild, bihemispheric cerebral dysfunction of the type seen most commonly in the setting of mild toxico- metabolic encephalopathy. No epileptiform discharges or seizures were noted.
== END 2021-12-17 12:05 | disposition home or self-care (01) ==
LOC: ANHED 15:58 → ANH3MEDSUR 22:03
PROVIDERS: Admitting Provider Student in an Organized Health Care Education/Training Program; Emergency Provider Emergency Medicine; PCP Internal Medicine; Visit Provider Chiropractor
DX: I63.9 Cerebral infarction, unspecified (principal); R41.0 Disorientation, unspecified; I10 Essential (primary) hypertension; Z72.0 Tobacco use
CPT/HCPCS: 36415; 51701; 70450; 70496; 70498; 70553; 80053; 81003; 82948; 85025; 85610; 85730; 86850; 86900; 86901; 92523; 92610; 93880; 95816; 96360; 96361; 96375; 97161; 97165; 99285; A9270; A9577; C8929; G0378; J7030; Q9957; Q9967

== ENCOUNTER 2022-02-04 07:59 | Outpatient (CLI) | payer OTHER, SELFPAY ==
--- NOTE | 2022-03-02 02:44 | WPDSLEEPSTUD ---
Sleep Study Date of Study: 02/04/22 Ordering Provider: Wilder Kwong DO Interpreting Physician: Jazmyn Hale MD Sleep Study Type: Split Polysomnogram Height: 1.68 m Weight: 114.759 kg Body Mass Index: 40.8 Neck Circumference (inches): 19 Gage: 2 Reason for Sleep Study Difficulty falling asleep and staying asleep, hypertension; patient had a recent heat stroke. Sleep History Teodoro Tran is a 56-year-old man with difficulty falling asleep and staying asleep. He wakes up during the night. He does not awaken from sleep feeling short of breath or awaken at night with heartburn, belching or coughing. He occasionally snores and occasionally this is loud enough that others complain. He does not have trouble sleeping with a cold. He does not wake up gasping for breath at night. He occasionally has breathing problems at night observed by others. He occasionally sweats excessively at night. He does not notice his heart pounding or beating irregularly at night. He does not fall asleep during the day, does not fall asleep involuntarily, and does not fall asleep while driving. He does not have loss of muscle tone with strong emotion. He does not have daytime difficulties due to excessive sleepiness. He does not feel paralyzed on waking or falling asleep. He does not have vivid dreamlike scenes upon awakening or falling asleep. He does not feel afraid to go to sleep. He does not have nightmares. He occasionally remembers his dreams. He occasionally has racing thoughts. He does not feel sad or depressed. He occasionally has anxiety. He does not have muscular tension. He does not notice parts of his body jerking. He does not kick at night. He denies having crawling or aching feelings in his legs. He does not have any kind of leg pain at night. He does not have morning jaw pain. He constantly grinds his teeth during sleep. He is not bothered by pain during the day. He occasionally is awakened by pain at night. He does not wake up feeling stiff in the morning. He does not wake up with sore or achy muscles. He occasionally wakes up with pain in the neck and spine. He has concentration difficulties. Normal bedtime is 10:00 p.m. falling asleep within 15 minutes waking twice at night to use the bathroom. He is able to return to sleep within a few minutes. His normal wake up time is 6:00 a.m.. His weekend schedule is the same. He reports getting 8 hours of sleep at night. He works 9 days followed by 5 days off. He does not take naps in the afternoon or evening. At times a short nap can be refreshing. He is usually drowsy in the morning for an hour before fully waking up. He feels better in the afternoon compared to other times of day. Habits: Quit tobacco 35 years ago. Caffeine 2 cups a day. Occasional alcohol. No recreational drugs. 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 The patient works for the [employer]. He has had asbestos exposure. The patient has 1 child. The patient uses smokeless tobacco. Patient occasionally drinks a glass of wine. He denies any substance abuse. Code status full code Smoking status: Never smoker Smokeless tobacco user: chewing tobacco Second hand tobacco smoke exposure: No Alcohol intake: current Alcohol use
[2022-03-02 03:53] VITALS: BMI 40.8
== END 2022-02-05 06:27 | disposition home or self-care (01) ==
LOC: ANHCSM 08:10
PROVIDERS: PCP Internal Medicine; Visit Provider Internal Medicine
DX: G47.33 Obstructive sleep apnea (adult) (pediatric) (principal)
CPT/HCPCS: 95811

== ENCOUNTER 2023-03-30 13:36 | Outpatient (CLI) | payer OTHER, SELFPAY ==
[2023-03-30 15:30] LABS: Alanine Aminotransferase 39 U/L (6-50); Albumin Level 4.1 g/dL (3.5-5.1); Alkaline Phosphatase 49 U/L (38-126); Anion Gap 8 mmol/L (8-16); Aspartate Amino Transferase 42 U/L (17-59); Bilirubin,Total 0.3 mg/dL (0.2-1.3); Blood Urea Nitrogen 19 mg/dL (9-20); Calcium 9.2 mg/dL (8.4-10.2); Carbon Dioxide 26 mmol/L (22-30); Chloride 103 mmol/L (98-107); Cholesterol 173 mg/dL (0-200); Estimated Glomerular Filt Rate > 60; Glucose 112 mg/dL (65-110); HDL Direct 40 mg/dL; Potassium 4.3 mmol/L (3.4-5.0); Sodium 137 mmol/L (137-145); Triglycerides 149 mg/dL (<150)
[2023-03-30 15:41] LABS: LDL Cholesterol Direct 108 mg/dL
[2023-03-30 17:30] LABS: Hemoglobin A1C 6.1 % (<5.7)
== END 2023-03-30 13:37 | disposition home or self-care (01) ==
LOC: ANHGOSHLAB 13:37
PROVIDERS: PCP Internal Medicine; Visit Provider Internal Medicine
DX: Z91.89 Other specified personal risk factors, not elsewhere classified (principal); Z13.29 Encounter for screening for other suspected endocrine disorder; Z13.228 Encounter for screening for other metabolic disorders; Z13.0 Encounter for screening for diseases of the blood and blood-forming organs and certain disorders involving the immune mechanism; I10 Essential (primary) hypertension; E66.01 Morbid (severe) obesity due to excess calories
CPT/HCPCS: 36415; 80053; 80061; 83036; 84443

== ENCOUNTER 2023-07-06 13:34 | Outpatient (CLI) | payer OTHER, SELFPAY ==
[2023-07-06 20:00] LABS: Alanine Aminotransferase 34 U/L (6-50); Albumin Level 4.4 g/dL (3.5-5.1); Alkaline Phosphatase 60 U/L (38-126); Anion Gap 10 mmol/L (8-16); Aspartate Amino Transferase 35 U/L (17-59); Bilirubin,Total 0.5 mg/dL (0.2-1.3); Blood Urea Nitrogen 17 mg/dL (9-20); Calcium 9.6 mg/dL (8.4-10.2); Carbon Dioxide 27 mmol/L (22-30); Chloride 101 mmol/L (98-107); Cholesterol 199 mg/dL (0-200); Estimated Glomerular Filt Rate > 60; Glucose 93 mg/dL (65-110); HDL Direct 41 mg/dL; Potassium 4.4 mmol/L (3.4-5.0); Sodium 138 mmol/L (137-145); Triglycerides 137 mg/dL (<150)
[2023-07-06 20:14] LABS: LDL Cholesterol Direct 128 mg/dL
[2023-07-06 20:26] LABS: Prostate Specific Antigen 1.5 ng/mL (< OR = 4.0)
[2023-07-06 20:56] LABS: Basophils Absolute Auto 0.1 K/mm3 (0.0-0.1); Basophils Percent Auto 1.3 % (0.2-1.2); Eosinophils Absolute Auto 0.3 K/mm3 (0-0.3); Eosinophils Percent Auto 3.6 % (0-4.4); Hematocrit 45.5 % (42.0-52.0); Hemoglobin 14.7 g/dL (14.0-18.0); Immature Granulocyte Absolute 0.03 K/mm3 (0.00-0.031); Immature Granulocyte Percent A 0.4 % (0-0.5); Lymphocytes Absolute Auto 2.32 K/mm3 (0.9-3.2); Lymphocytes Percent Auto 33.8 % (18.3-44.2); Mean Corpuscular HGB Conc 32.3 g/dl (32-36); Mean Corpuscular Hemoglobin 31.1 pg (26-34); Mean Corpuscular Volume 96.4 fl (80-100); Monocytes Absolute Auto 1.1 K/mm3 (0.1-0.6); Monocytes Percent Auto 15.9 % (2.6-8.5); Neutrophils Absolute Auto 3.1 K/mm3 (1.3-6.7); Platelet Count Result 243 k/mm3 (150-375); Red Blood Count 4.72 M/mm3 (4.6-6.20); White Blood Count 6.9 K/mm3 (4.5-10.0)
== END 2023-07-06 13:35 | disposition home or self-care (01) ==
LOC: ANHGOSHLAB 13:37
PROVIDERS: PCP Internal Medicine; Visit Provider Internal Medicine
DX: Z12.5 Encounter for screening for malignant neoplasm of prostate (principal); I10 Essential (primary) hypertension; R73.9 Hyperglycemia, unspecified; E66.01 Morbid (severe) obesity due to excess calories
CPT/HCPCS: 36415; 80053; 80061; 83036; 84153; 85025; G0103

== ENCOUNTER 2023-10-22 10:02 | Outpatient (CLI) | payer OTHER, SELFPAY ==
[2023-10-22 15:30] LABS: Appearance Urine Clear (Clear); Bacteria Urine None Seen /hpf; Bilirubin Urine Negative (Negative); Blood Urine Negative (Negative); Color Urine Yellow (Yellow); Glucose Urine UA Negative (Negative); Ketones Urine Negative (Negative); Leukocyte Esterase Ur Trace LEU/UL (Negative); Nitrate Urine Negative (Negative); Non Pathogenic Casts 0-2; Protein Urine Negative (Negative); RBC Urine 0-2 /hpf (0-2); Specific Grav Ur 1.021 (1.001-1.035); Squamous Epithelial Cell Urine None Seen /hpf (Few); Urobilinogen Urine 0.2 mg/dL (<2.0)
[2023-10-22 15:33] LABS: Add Urine Microscopic? YES
[2023-10-22 16:45] LABS: Chlamydia trachomatis NOT DETECTED (NOT DETECTE); Neisseria gonorrhoeae PCR NOT DETECTED (NOT DETECTE)
== END 2023-10-22 10:03 | disposition home or self-care (01) ==
LOC: ANHGOSHLAB 10:03
PROVIDERS: PCP Internal Medicine; Visit Provider Internal Medicine
DX: N45.2 Orchitis (principal)
CPT/HCPCS: 87491; 87591

== ENCOUNTER 2023-10-26 09:03 | Outpatient (CLI) | payer OTHER, SELFPAY | END 2023-10-26 09:04 | disposition home or self-care (01) | LOC: ANHGOSHLAB 09:04 | PROVIDERS: PCP Internal Medicine; Visit Provider Internal Medicine | DX: N45.2 Orchitis (principal) | CPT/HCPCS: 87077; 87086; 87088; 87186 ==

== ENCOUNTER 2024-04-21 09:24 | Outpatient (CLI) | payer OTHER, SELFPAY ==
[2024-04-21 15:44] LABS: Alanine Aminotransferase 32 U/L (6-50); Albumin Level 4.1 g/dL (3.5-5.1); Alkaline Phosphatase 60 U/L (38-126); Anion Gap 11 mmol/L (4-12); Aspartate Amino Transferase 61 U/L (17-59); Bilirubin,Total 0.5 mg/dL (0.2-1.3); Blood Urea Nitrogen 20 mg/dL (9-20); Calcium 9.1 mg/dL (8.4-10.2); Carbon Dioxide 23 mmol/L (22-30); Chloride 101 mmol/L (98-107); Cholesterol 182 mg/dL (0-200); Estimated Glomerular Filt Rate > 60; Glucose 111 mg/dL (65-110); HDL Direct 41 mg/dL; Potassium 4.2 mmol/L (3.4-5.0); Sodium 135 mmol/L (137-145); Triglycerides 135 mg/dL (<150)
[2024-04-21 15:55] LABS: LDL Cholesterol Direct 114 mg/dL
[2024-04-21 15:58] LABS: Basophils Absolute Auto 0.1 K/mm3 (0.0-0.1); Basophils Percent Auto 1.2 % (0.2-1.2); Eosinophils Absolute Auto 0.5 K/mm3 (0-0.3); Eosinophils Percent Auto 8.3 % (0-4.4); Hematocrit 46.5 % (42.0-52.0); Hemoglobin 14.9 g/dL (14.0-18.0); Immature Granulocyte Absolute 0.03 K/mm3 (0.00-0.031); Immature Granulocyte Percent A 0.5 % (0-0.5); Lymphocytes Percent Auto 32.4 % (18.3-44.2); Mean Corpuscular Hemoglobin 31.2 pg (26-34); Mean Corpuscular Volume 97.3 fl (80-100); Mean Platelet Volume 10.3 fl (7.4-10.4); Neutrophils Absolute Auto 2.8 K/mm3 (1.3-6.7); Neutrophils Percent Auto 42.6 % (45.5-73.1); Platelet Count Result 250 k/mm3 (150-375); Red Blood Count 4.78 M/mm3 (4.6-6.20); White Blood Count 6.5 K/mm3 (4.5-10.0)
[2024-04-21 16:56] LABS: Hemoglobin A1C 6.3 % (<5.7)
== END 2024-04-21 09:25 | disposition home or self-care (01) ==
LOC: ANHGOSHLAB 09:25
PROVIDERS: PCP Internal Medicine; Visit Provider Internal Medicine
DX: R73.9 Hyperglycemia, unspecified (principal); Z13.29 Encounter for screening for other suspected endocrine disorder; Z13.0 Encounter for screening for diseases of the blood and blood-forming organs and certain disorders involving the immune mechanism; E66.01 Morbid (severe) obesity due to excess calories; I10 Essential (primary) hypertension; Z13.228 Encounter for screening for other metabolic disorders; Z12.5 Encounter for screening for malignant neoplasm of prostate
CPT/HCPCS: 36415; 80053; 80061; 83036; 85025